=== PATIENT | female | born 1960 | race Caucasian/White ===

== ENCOUNTER 2017-04-26 17:37 | Emergency (ER) | payer OTHER ==
[2017-04-26] MEDS ORDERED: Ondansetron ODT 4 MG TAB ONE (18:10)
[2017-04-26 18:18] LABS: Bilirubin Negative (Negative); Blood, Urine Large (Negative); Glucose, Urine (Dipstick) Negative (Negative); Leukocyte Large (Negative); Nitrite Negative (Negative); Protein, Urine (Dipstick) 100 mg/dL (Neg-Trace); Urobilinogen 0.2 mg/dL (0.2-1.0); pH, Urine 5.5 (5.0-9.0)
[2017-04-26 18:19] LABS: Clarity Hazy (Clear)
[2017-04-26 18:25] LABS: Bacteria/HPF 2+ HPF (None Seen); Crystals/HPF 2+ AMORPH URATES HPF (Negative); Specific Gravity, Urine 1.007 (1.002-1.036); Squamous Epithelial 0-3 HPF (0-3)
[2017-04-26] MEDS ORDERED: Ibuprofen 800 MG TAB ONE (18:40)
[2017-04-26] MEDS ORDERED: Ketorolac Tromethamine 60 MG/2 ML VIAL ONE (18:40)
== END 2017-04-26 18:45 | disposition home or self-care (01) ==
LOC: NAV ERS 17:37
DX: N39.0 Urinary tract infection, site not specified (principal); I10 Essential (primary) hypertension; F32.9 Major depressive disorder, single episode, unspecified; F17.200 Nicotine dependence, unspecified, uncomplicated
CPT/HCPCS: 81003; 81015; 96372; J1885; Q0162

== ENCOUNTER 2017-05-09 14:41 | Outpatient (CLI) | payer OTHER ==
[2017-05-09 21:19] LABS: Bilirubin Negative (Negative); Blood, Urine Negative (Negative); Clarity Clear (Clear); Glucose, Urine (Dipstick) Negative (Negative); Leukocyte Negative (Negative); Nitrite Negative (Negative); Protein, Urine (Dipstick) Negative (Neg-Trace); Urobilinogen 0.2 mg/dL (0.2-1.0)
[2017-05-09 21:33] LABS: Specific Gravity, Urine 1.004 (1.002-1.036)
== END 2017-05-09 14:42 | disposition home or self-care (01) ==
LOC: NAV LAB 14:41
PROVIDERS: ATTEND Family Medicine
DX: N30.00 Acute cystitis without hematuria (principal)
CPT/HCPCS: 81003; 87086

== ENCOUNTER 2019-05-17 15:06 | Outpatient (CLI) | payer OTHER ==
--- NOTE | 2019-05-17 16:16 | ULT ---
VENOUS DOPPLER ULTRASOUND OF THE LEFT LOWER EXTREMITY: 05/17/19 HISTORY: Left lower extremity edema. TECHNIQUE: Muñoz scale ultrasound with color flow and spectral Doppler imaging of the deep venous systems of the lower extremity performed bilaterally. FINDINGS: There is good flow, compression, and augmentation noted in the common femoral, femoral, deep femoral, popliteal, posterior tibial and greater saphenous veins. IMPRESSION: No evidence of DVT in the left lower extremity. POS: OFF
--- NOTE | 2019-05-17 17:24 | ULT ---
LEFT LOWER EXTREMITY ARTERIAL VASCULAR DUPLEX INCLUDING COLOR AND SPECTRAL DOPPLER IMAGIN05/17/19 HISTORY: Edema left lower extremity for three weeks. Exam performed from groin to ankle. There is triphasic flow involving the common femoral artery, profunda femoral artery, superficial fem oral artery, popliteal artery, anterior tibial artery and posterior tibial artery with monophasic rashad w noted at the level of the dorsalis pedis artery with 57 cm/s velocity. No abnormal high velocities. IMPRESSION: Triphasic flow from groin down to the level of the ankle. Monophasic flow at the level of dorsalis pe dis artery with a velocity of 57 cm/s. Evidence for no significant left lower extremity arterial va scular disease down to the level of the dorsalis pedis. These demonstrated involving the left lower extremity. POS: YAO
== END 2019-05-17 15:07 | disposition home or self-care (01) ==
LOC: NAV ULT 15:06
PROVIDERS: ATTEND Nurse Practitioner Adult Health
DX: R60.0 Localized edema (principal)
CPT/HCPCS: 93926